=== PATIENT | male | born 1975 | race American Indian/Alaskan Native ===

== ENCOUNTER 2017-05-09 07:03 | Emergency (ER) | payer SELFPAY ==
[2017-05-09] MEDS ORDERED: ASPIRIN PO ONE (07:23)
[2017-05-09 08:26] LABS: Basophils % (Auto) 0.6 % (0.0-1.8); Eosinophils # (Auto) 0.1 K/mm3 (0.0-0.4); Eosinophils % (Auto) 1.3 % (0.0-4.3); Hematocrit 47.7 % (35.5-45.6); Hemoglobin 15.7 gm/dl (11.8-15.2); Lymphocytes # (Auto) 2.9 K/mm3 (1.2-5.4); Lymphocytes % (Auto) 39.4 % (13.4-35.0); Mean Corpuscular HGB Conc 33 % (32-34); Mean Corpuscular Hemoglobin 26 pg (28-32); Mean Corpuscular Volume 80 fl (84-94); Monocytes # (Auto) 0.5 K/mm3 (0.0-0.8); Monocytes % (Auto) 6.5 % (0.0-7.3); Platelet Count 249 K/mm3 (140-440); Red Blood Count 5.97 M/mm3 (3.65-5.03); Red Cell Distribution Width 14.4 % (13.2-15.2)
[2017-05-09 08:46] LABS: BUN/Creatinine Ratio 20; Blood Urea Nitrogen 16 mg/dL (9-20); Calcium 8.6 mg/dL (8.4-10.2); Hemolysis Index 6
[2017-05-09] MEDS ORDERED: ASPIRIN ONE (10:30)
--- NOTE | 2017-05-09 10:31 | Emergency Department Report ---
Chief Complaint: Chest Pain Stated Complaint: HTN - HPI History of Present Illness: Mr. Lizarraga has presents with generalized malaise. He denies any discrete pain. He said he felt lightheaded. He admits that he has had poor diet. He does not desires medication for hypertension and diabetes. Initial triage complaint was chest pain. However he denies chest pain at this point. - Exam Vital Signs: Vital Signs 05/09/17 07:18 Temperature 98.9 F Pulse Rate 100 H Respiratory 18 Rate Blood Pressure 140/105 O2 Sat by Pulse 98 Oximetry MSE screening note: Focused history and physical exam performed. Due to findings the following was ordered: ED Medical Decision Making - Lab Data Result diagrams: 05/09/17 07:30 05/09/17 07:30 ED Disposition for MSE Condition: Stable Referrals: PRIMARY CARE, [Primary Care Provider] - 3-5 Days
--- NOTE | 2017-05-09 10:55 | Emergency Department Report ---
ED General Adult HPI - General Chief complaint: Chest Pain Stated complaint: HTN Source: patient Mode of arrival: Ambulatory Limitations: No Limitations - History of Present Illness Initial comments: 41-year-old male past medical history type 2 diabetes hypertension presents for request of blood pressure check. Patient states that his blood pressure at home earlier this week and it was in the 170s over 110s. Patient denies any current chest pain headache palpitations nausea vomiting dysuria. Patient does state he has had several months of polyuria. Denies any dysuria or hematuria. Patient states he self discontinued his metformin over 1 year ago and has not followed up with primary care. Patient is awake alert and oriented with no clinical complaints at this time. Patient has been screened by Dr. Cruz. Onset/Timin -: week(s) - Related Data Previous Rx's Medication Instructions Recorded Last Taken Type amLODIPine [Norvasc] 5 mg PO DAILY #30 tab 05/09/17 Unknown Rx metFORMIN [Glucophage] 500 mg PO BID #60 tablet 05/09/17 Unknown Rx Allergies Allergy/AdvReac Type Severity Reaction Status Date / Time No Known Allergies Allergy Unverified 05/09/17 07:22 ED Review of Systems ROS: Stated complaint: HTN Other details as noted in HPI Constitutional: denies: chills, fever Eyes: denies: eye pain, eye discharge, vision change ENT: denies: ear pain, throat pain Respiratory: denies: cough, shortness of breath, wheezing Cardiovascular: denies: chest pain, palpitations Endocrine: no symptoms reported, increased urine Gastrointestinal: denies: abdominal pain, nausea, diarrhea Genitourinary: denies: urgency, dysuria Musculoskeletal: denies: back pain, joint swelling, arthralgia Skin: denies: rash, lesions Neurological: denies: headache, weakness, paresthesias Psychiatric: denies: anxiety, depression Hematological/Lymphatic: denies: easy bleeding, easy bruising ED Past Medical Hx - Past Medical History Hx Diabetes: Yes - Surgical History Past Surgical History?: No - Social History Smoking Status: Current Some Day Smoker Substance Use Type: Marijuana - Medications Home Medications: Home Medications Medication Instructions Recorded Confirmed Last Taken Type amLODIPine [Norvasc] 5 mg PO DAILY #30 tab 05/09/17 Unknown Rx metFORMIN [Glucophage] 500 mg PO BID #60 tablet 05/09/17 Unknown Rx ED Physical Exam - General Limitations: No Limitations General appearance: alert, in no apparent distress - Head Head exam: Present: atraumatic, normocephalic - Eye Eye exam: Present: normal appearance, PERRL, EOMI - ENT ENT exam: Present: mucous membranes moist - Neck Neck exam: Present: normal inspection - Respiratory Respiratory exam: Present: normal lung sounds bilaterally. Absent: respiratory distress - Cardiovascular Cardiovascular Exam: Present: regular rate, normal rhythm. Absent: systolic murmur, diastolic murmur, rubs, gallop - GI/Abdominal GI/Abdominal exam: Present: soft, normal bowel sounds - Rectal Rectal exam: Present: deferred - Extremities Exam Extremities exam: Present: normal inspection - Back Exam Back exam: Present: normal inspection - Neurological Exam Neurological exam: Present: alert, oriented X3 - Psychiatric Psychiatric exam: Present: normal affect, normal mood - Skin Skin exam: Present: warm, dry, intact, normal color. Absent: rash ED Course Vital Signs 05/09/17 07:18 Temperature 98.9 F Pulse Rate 100 H Respiratory 18 Rate Blood Pressure 140/105 O2 Sat by Pulse 98 Oximetry ED Medical Decision Making - Lab Data Result diagrams: 05/09/17 07:30 05/09/17 07:30 - Medical Decision Making A/P: Asymptomatic hypertension, hyperglycemia history of type 2 diabetes 1-discussed with Dr. Cruz before discharge, labs and EKG reviewed. 2-I referred patient to primary care 3-I advised patient about the importance of taking his prescribed metformin and I will also begin patient on low-dose amlodipine. I discussed this with Dr. Cruz before prescribing any medicines the patient. Patient stated he understood the importance of managing hypertension and diabetes to mitigate any long-term risk of heart attack or stroke and other complications secondary to these diseases. 4- vital signs stable for discharge Critical care attestation.: If time is entered above; I have spent that time in minutes in the direct care of this critically ill patient, excluding procedure time. ED Disposition Clinical Impression: Asymptomatic hypertension, Medication refill Disposition: TO HOME OR SELFCARE Is pt being admited?: No Does the pt Need Aspirin: No Condition: Stable Instructions: Hypertension (ED) Prescriptions: amLODIPine [Norvasc] 5 mg PO DAILY #30 tab metFORMIN [Glucophage] 500 mg PO BID #60 tablet Referrals: PRIMARY CARE, [Primary Care Provider] - 3-5 Days [facility] [Outside] - 3-5 Days [facility] [Outside] - 3-5 Days NATALY STRONG MD [Staff Physician] - 3-5 Days Forms: Work/School Release Form(ED) Time of Disposition: 10:55
[2017-05-09 11:17] VITALS: BP 128/94
== END 2017-05-09 11:19 | disposition home or self-care (01) ==
LOC: ED 07:03
DX: I10 Essential (primary) hypertension (principal); E11.9 Type 2 diabetes mellitus without complications; F17.200 Nicotine dependence, unspecified, uncomplicated; F12.10 Cannabis abuse, uncomplicated
CPT/HCPCS: 36415; 80048; 84484; 85025; 93005; 93010